=== PATIENT | female | born 2000 | race Caucasian/White ===

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

== ENCOUNTER 2022-02-20 05:27 | Emergency (ER) | payer BC, OTHER ==
[~2022-02-20] VITALS: Ht 167 cm; Wt 53.5 kg
[2022-02-20 05:59] LABS: BILIRUBIN,URINE NEGATIVE (NEGATIVE); CLARITY,URINE CLEAR; COLOR,URINE YELLOW; GLUCOSE, URINE (UA) NEGATIVE (NEGATIVE); KETONES,URINE NEGATIVE (NEGATIVE); LEUKOCYTE ESTERASE ,URINE TRACE (NEGATIVE); NITRITE,URINE NEGATIVE (NEGATIVE); PH,URINE 6.5 (5-9); PROTEIN,URINE 2+ (NEGATIVE)
--- NOTE | 2022-02-20 06:15 | ED GU-Female ---
General Chief Complaint: - Reproductive Stated Complaint: CRAMPING Nursing Triage Note: Patient has history of PCOS. Patient complaint of lower abdominal cramping. patient mother states patient "passed out". patient verbalized treated at for the PCOS. Source: patient Exam Limitations: no limitations History of Present Illness Date Seen by Provider: Feb 20, 2022 Time Seen by Provider: 06:02 Initial Comments Patient is a 21-year-old female who presents to the emergency room with her mother chief complaint suprapubic abdominal pain onset at approximately 1 AM. Patient states the pain is sharp and stabbing. It did cause some nausea and vomiting. She is followed at for "low estrogen". Patient reports her menstrual cycles are relatively normal. Her last one was at the beginning of February. No prior abdominal surgeries. No prior pregnancies. She did start her menstrual cycle this evening per she took 2 Midol just prior to arrival. Currently rates her pain at a "8". Denies dysuria, urgency, frequency or hematuria. No abnormal bowel movements. No abnormal vaginal discharge. No fevers or chills although her mother reports that she had a "low-grade" temperature early this morning. No history of diagnosed ovarian cysts. All other review of systems reviewed and negative except as stated Timing/Duration: this morning (99) Severity/Quality: severe, sharp, stabbing Location: suprapubic Radiation: none Activities at Onset: sleep Prior Genitourinary Problems: similar symptoms (not as bad as this morning) Associated Symptoms: nausea/vomiting, syncope Allergies and Home Medications Allergies Coded Allergies: No Known Drug Allergies (Unverified , 06/11/19) Patient Home Medication List Home Medication List Reviewed: Yes Ondansetron (Ondansetron Odt) 4 Mg Tab.rapdis, 8 MG PO Q6H PRN for NAUSEA/VOMITING Prescribed by: GURWINDER FAJARDO on 06/12/19 0051 Review of Systems Review of Systems Constitutional: see HPI EENTM: no symptoms reported Respiratory: no symptoms reported Cardiovascular: no symptoms reported Gastrointestinal: abdominal pain : No LMP: Jan 21, 2022 Musculoskeletal: no symptoms reported Skin: no symptoms reported All Other Systemes Reviewed Negative Unless Noted: Yes Past Qvwzlwd-Gwexko-Zhcfdk Hx Seasonal Allergies Seasonal Allergies: No Past Medical History Surgeries: No Respiratory: No Cardiac: No Neurological: No Genitourinary: No Gastrointestinal: No Musculoskeletal: No Endocrine: No HEENT: No Cancer: No Psychosocial: Yes Bipolar Integumentary: No Physical Exam Vital Signs Vital Signs - First Documented 02/20/22 05:42 Temp 36.2 Pulse 65 Resp 18 B/P (MAP) 119/69 (86) Pulse Ox 100 O2 Delivery Room Air Capillary Refill : Less Than 3 Seconds Height, Weight, BMI Height: '" Weight: lbs. oz. kg; 19.00 BMI Method: General Appearance: WD/WN, no apparent distress HEENT: PERRL/EOMI Cardiovascular: regular rate, rhythm Respiratory: lungs clear, normal breath sounds, no respiratory distress, no accessory muscle use Gastrointestinal: normal bowel sounds, soft, tenderness (suprapubic tenderness to suprapubic region. no involuntary guarding. mild tenderness diffusely. no rebound/ridgidity) Extremities: normal range of motion, normal inspection Neurologic/Psychiatric: alert, normal mood/affect, oriented x 3 Skin: normal color, warm/dry Progress/Results/Core Measures Suspected Sepsis SIRS Temperature: Pulse: 65 Respiratory Rate: 18 Blood Pressure 119 /69 Mean: 86 Results/Orders Lab Results Laboratory Tests Test 02/20/22 05:46 Range/Units Urine Color YELLOW Urine Clarity CLEAR Urine pH 6.5 5-9 Urine Specific [place] 1.025 H 1.016-1.022 Urine Protein 2+ H NEGATIVE Urine Glucose (UA) NEGATIVE NEGATIVE Urine Ketones NEGATIVE NEGATIVE Urine Nitrite NEGATIVE NEGATIVE Urine Bilirubin NEGATIVE NEGATIVE Urine Urobilinogen 0.2 < = 1.0 MG/DL Urine Leukocyte Esterase TRACE H NEGATIVE Urine RBC (Auto) 3+ H NEGATIVE Urine RBC TNTC H /HPF Urine WBC 2-5 /HPF Urine Squamous Epithelial Cells 0-2 /HPF Urine Crystals PRESENT H /LPF Urine Amorphous Sediment FEW DAGOBERTO URATES H /LPF Urine Bacteria FEW H /HPF Urine Casts NONE /LPF Urine Mucus LARGE H /LPF Urine Culture Indicated YES Urine Test NEGATIVE NEGATIVE My Orders Orders - MEI JARVIS MD Ketorolac Injection (Toradol Injection) (02/20/22 06:30) Us Non Ob Pelvis Comp/Transvag (02/20/22 06:28) Medications Given in ED Current Medications Medications Dose Ordered Sig/Betty Route Start Time Stop Time Status Last Admin Dose Admin Ketorolac Tromethamine 30 mg ONCE ONCE IM 02/20/22 06:30 11/9/22 06:31 DC 02/20/22 06:26 30 MG Vital Signs/I&O 02/20/22 05:42 Temp 36.2 Pulse 65 Resp 18 B/P (MAP) 119/69 (86) Pulse Ox 100 O2 Delivery Room Air Capillary Refill : Less Than 3 Seconds Blood Pressure Mean: 86 Progress Note : Time: 07:33 Progress Note Patient seen and examined by me. Eval today includes a physical exam, urinalysis, preg test and pelvic ultrasound. Patient appears comfortable with pain at an "8". Pain meds [employer] - "midol". Abdominal exam, non focal. normal bowel sounds. non n/v/d/c. no urinary complaints. Low clinical suspicion for acute surgical condition, such as appendicitis, bowel obstruction and even torsion - however, in light of reported history of PCOS, pelvic ultrasound was performed which was normal. test negative. urine with gross hematuria (patient is on her menstrual cycle). Low clinical suspicion for UTI/kidney stone - HPI and PE no consistent with kidney stone presentation and she is asymptomatic of a UTI, Feels much better after TOradol. Diagnostic Imaging Diagonstic Imaging: Ultrasound Comments preliminary interpretation - normal flow, no large cysts; no free fluid, unremarkable Departure Impression Primary Impression: Pelvic pain Additional Impression: Menses painful Disposition: 01 HOME, SELF-CARE Condition: Improved Departure-Patient Inst. Decision time for Depature: 07:49 Referrals: ZAK HANNA MD (PCP/Family) Primary Care Physician Patient Instructions: Painful Periods Add. Discharge Instructions: Please follow up with an OBGYN provider for further management of control and hormones. Over the counter generic Aleve (naproxen) 250mg pills - take 2 twice a day with food for cramping pain. This will also help slow down the flow of your cycle ( make it less heavy). There are menstrual heat relief cramps (much like for joint pain) available at [facility] - that last up to 8 hours at a time that may help. Return to the Emergency Department for any worsening pain, especially with fever, vomiting, a passing out spell, or any other, emergent, concerning complaints. Copy Copies To 1: [facility]/MIKAL Copies To 2: [facility]/MEI RAMOS MD Feb 20, 2022 06:15
[2022-02-20 06:21] LABS: AMORPHOUS SEDIMENT,UR FEW AMOR URATES /LPF; BACTERIA,URINE FEW /HPF; RBC,URINE TNTC /HPF; SQUAMOUS EPITHELIAL CELL,UR 0-2 /HPF
[2022-02-20] MEDS ORDERED: KETOROLAC 30 MG/ML VIAL IM ONE (06:30)
[2022-02-20 07:59] VITALS: BP 106/62
--- NOTE | 2022-02-20 08:56 | Diagnostic Imaging Report ---
PROCEDURE: US Non-ob pelvis comp/trans. TECHNIQUE: Multiple realtime grayscale images were obtained of the pelvis in various projections endovaginally. Transabdominal imaging was also performed. INDICATION: Left pelvic and suprapubic pain FINDINGS: Ovaries and adnexa normal. There is normal color Doppler blood flow. No adnexal torsion. No suspicious solid or cystic ovarian lesion with a physiologic follicular cyst noted incidentally. There is no fibroid or myometrial mass. The endometrium appeared normal, homogenous and 6 mm. IMPRESSION: This is a normal pelvic ultrasound. Dictated by: Dictated on workstation # [id number]
== END 2022-02-20 07:59 | disposition home or self-care (01) ==
LOC: EDUNIT# 05:27 → ER 05:28
DX: N94.6 Dysmenorrhea, unspecified (principal); Z32.02 Encounter for pregnancy test, result negative; Z28.310 Unvaccinated for COVID-19
CPT/HCPCS: 76830; 76856; 81000; 84703; 87088

== ENCOUNTER 2022-07-22 06:43 | Emergency (ER) | payer OTHER ==
[~2022-07-22] VITALS: Ht 167 cm; Wt 55.0 kg
--- NOTE | 2022-07-22 07:50 | ED Abdominal Pain ---
General Chief Complaint: Abdominal/GI Problems Stated Complaint: ABD PAIN Nursing Triage Note: Patient has presented to ER with cc of abd cramping since about 0330 this morning - she reports that she started her period this morning - she normally has severe cramping with her periods. She reports that she has had this for the last 2 years. She is to be taking control but she has not not for some time due to lack of insurance. She took aleeve this morning but it has not helped the pain much. Source of Information: Patient Exam Limitations: No Limitations History of Present Illness Date Seen by Provider: Jul 22, 2022 Time Seen by Provider: 07:35 Initial Comments This 22 year old young lady presents to the ER with complaints of severe menstrual cramping which is no unusual for her. She has been up since about 0330 with severe cramps. She reports "nearly passing out.". She has vomited secondary to the cramps. She reports her pain is 9/10. She reports frequently needing to come to the emergency room for management of dysmenorrhea. She is supposed to be discussing management of dysmenorrhea with Dr. Hanna and talk about control options, but she reports financial barriers preventing her from doing so. She took Aleve around 0400. Allergies and Home Medications Allergies Coded Allergies: No Known Drug Allergies (Unverified , 06/11/19) Patient Home Medication List Home Medication List Reviewed: Yes Hyoscyamine Sulfate (Levsin-Sl) 0.125 Mg Tab.subl, 1-2 TAB SL Q4H PRN for CRAMPS Prescribed by: YULIA CRUZ on 07/22/22 0842 Ondansetron (Ondansetron Odt) 4 Mg Tab.rapdis, 8 MG PO Q6H PRN for NAUSEA/VOMITING Prescribed by: GURWINDER FAJARDO on 06/12/19 0051 Ondansetron (Ondansetron Odt) 4 Mg Tab.rapdis, 4 MG SL Q4H PRN for NAUSEA/VOMITING Prescribed by: YULIA CRUZ on 07/22/22 0842 Review of Systems Review of Systems Constitutional: no symptoms reported EENTM: No Symptoms Reported Respiratory: No Symptoms Reported Cardiovascular: No Symptoms Reported Gastrointestinal: No Symptoms Reported Genitourinary: See HPI Musculoskeletal: see HPI Skin: no symptoms reported Psychiatric/Neurological: No Symptoms Reported Endocrine: No Symptoms Reported Hematologic/Lymphatic: No Symptoms Reported Past Kqmszlo-Johabk-Lpxger Hx Patient Social History Tobacco Use?: Yes Tobacco type used: Cigarettes Smoking Status: Current Everyday Smoker Substance use?: Yes Substance type: Marijuana Substance frequency: Daily Alcohol Use?: No Seasonal Allergies Seasonal Allergies: No Past Medical History Surgeries: No Respiratory: No Cardiac: No Neurological: No Reproductive Disorders: Yes Female Reproductive Disorders: Menstrual Problems (Severe dysmenorrhea with severe pain) Genitourinary: No Gastrointestinal: No Musculoskeletal: No Endocrine: No HEENT: No Cancer: No Psychosocial: Yes Bipolar Integumentary: No Physical Exam Vital Signs Vital Signs - First Documented 07/22/22 07:29 Temp 35.5 Pulse 66 Resp 16 B/P (MAP) 109/72 (84) Capillary Refill : Height/Weight/BMI Height: '" Weight: lbs. oz. kg; 19.00 BMI Method: General Appearance: WD/WN, no apparent distress, thin HEENT: normal ENT inspection Neck: normal inspection Respiratory: lungs clear, normal breath sounds, no respiratory distress Cardiovascular: regular rate, rhythm, no edema, no murmur Gastrointestinal: soft; No distended; tenderness (Suprapubic region, left upper quadrant, epigastrium) Extremities: normal inspection Neurologic/Psychiatric: alert, normal mood/affect, oriented x 3 Skin: normal color, warm/dry Progress/Results/Core Measures Results/Orders Lab Results Laboratory Tests Test 07/22/22 08:06 07/22/22 08:35 Range/Units White Blood Count 11.7 H 4.3-11.0 10^3/uL Red Blood Count 4.17 3.80-5.11 10^6/uL Hemoglobin 12.4 11.5-16.0 g/dL Hematocrit 38 35-52 % Mean Corpuscular Volume 90 80-99 fL Mean Corpuscular Hemoglobin 30 25-34 pg Mean Corpuscular Hemoglobin Concent 33 32-36 g/dL Red Cell Distribution Width 13.4 10.0-14.5 % Platelet Count 310 130-400 10^3/uL Mean Platelet Volume 9.9 9.0-12.2 fL Immature Granulocyte % (Auto) 0 % Neutrophils (%) (Auto) 86 H 42-75 % Lymphocytes (%) (Auto) 9 L 12-44 % Monocytes (%) (Auto) 4 0-12 % Eosinophils (%) (Auto) 0 0-10 % Basophils (%) (Auto) 1 0-10 % Neutrophils # (Auto) 10.1 H 1.8-7.8 10^3/uL Lymphocytes # (Auto) 1.0 1.0-4.0 10^3/uL Monocytes # (Auto) 0.5 0.0-1.0 10^3/uL Eosinophils # (Auto) 0.1 0.0-0.3 10^3/uL Basophils # (Auto) 0.1 0.0-0.1 10^3/uL Immature Granulocyte # (Auto) 0.0 0.0-0.1 10^3/uL Sodium Level 137 135-145 MMOL/L Potassium Level 3.6 3.6-5.0 MMOL/L Chloride Level 109 H 98-107 MMOL/L Carbon Dioxide Level 21 21-32 MMOL/L Anion Gap 7 5-14 MMOL/L Blood Urea Nitrogen 8 7-18 MG/DL Creatinine 0.74 0.60-1.30 MG/DL Estimat Glomerular Filtration Rate 118 BUN/Creatinine Ratio 11 Glucose Level 102 70-105 MG/DL Calcium Level 8.7 8.5-10.1 MG/DL Corrected Calcium 8.9 8.5-10.1 MG/DL Total Bilirubin 0.8 0.1-1.0 MG/DL Aspartate Amino Transf (AST/SGOT) 19 5-34 U/L Alanine Aminotransferase (ALT/SGPT) 21 0-55 U/L Alkaline Phosphatase 44 40-136 U/L Total Protein 6.6 6.4-8.2 GM/DL Albumin 3.8 3.2-4.5 GM/DL Lipase 23 8-78 U/L Serum Test, Qualitative NEGATIVE NEGATIVE Urine Color YELLOW Urine Clarity CLEAR Urine pH 7.5 5-9 Urine Specific [place] 1.015 L 1.016-1.022 Urine Protein TRACE H NEGATIVE Urine Glucose (UA) NEGATIVE NEGATIVE Urine Ketones 1+ H NEGATIVE Urine Nitrite NEGATIVE NEGATIVE Urine Bilirubin NEGATIVE NEGATIVE Urine Urobilinogen 0.2 < = 1.0 MG/DL Urine Leukocyte Esterase TRACE H NEGATIVE Urine RBC (Auto) 1+ H NEGATIVE Urine RBC RARE /HPF Urine WBC 0-2 /HPF Urine Squamous Epithelial Cells 0-2 /HPF Urine Crystals PRESENT H /LPF Urine Amorphous Sediment FEW DAGOBERTO PHOSPHATE H /LPF Urine Bacteria NEGATIVE /HPF Urine Casts NONE /LPF Urine Mucus SMALL H /LPF Urine Culture Indicated NO My Orders Orders - YULIA GREER MD Ua Culture If Indicated (07/22/22 06:57) Hcg,Qualitative Serum (07/22/22 07:47) Ed Iv/Invasive Line Start (07/22/22 07:47) Cbc With Automated Diff (07/22/22 07:47) Comprehensive Metabolic Panel (07/22/22 07:47) Lipase (07/22/22 07:47) Ketorolac Injection (Toradol Injection) (07/22/22 08:00) Ondansetron Injection (Zofran Injectio (07/22/22 08:00) Lactated Ringers (Lr 1000 Ml Iv Solution (07/22/22 08:00) Hyoscyamine Sl Tablet (Levsin Sl Tablet) (07/22/22 08:00) Medications Given in ED Vital Signs/I&O 07/22/22 07/22/22 07:29 09:25 Temp 35.5 36.0 Pulse 66 62 Resp 16 16 B/P (MAP) 109/72 (84) 112/74 Blood Pressure Mean: 84 Progress Progress Note : Progress Note Patient was interviewed and examined. Based on location of her pain and tenderness, labs were obtained including CBC, CMP, lipase, serum hCG, and urinalysis. Labs were reviewed and interpreted by me. There were no significant abnormalities appreciated. She was treated with a liter of IV fluid, Toradol, Zofran, and Levsin with significant improvement. See discharge instructions for further discussion. Departure Impression Primary Impression: Dysmenorrhea Additional Impression: Nausea & vomiting Qualified Codes: R11.2 - Nausea with vomiting, unspecified Disposition: HOME, SELF-CARE Condition: Improved Departure-Patient Inst. Decision time for Depature: 08:39 Referrals: ZAK HANNA MD (PCP/Family) Primary Care Physician Patient Instructions: Menstrual Cramps Add. Discharge Instructions: Drink plenty of clear liquids to stay well-hydrated. Use the Zofran (ondansetron) as prescribed for nausea and vomiting. Use Levsin (hyoscyamine) as prescribed for bowel or menstrual cramping. Both Zofran and Levsin are sublingual tablets that can be dissolved under your tongue. Use of marijuana or THC products is discouraged as it may cause severe problems with abdominal pain, cramping, and vomiting. Follow-up with your primary care provider or women's health provider as soon as possible to discuss methods of preventing severe menstrual cramps. For pain you may take either Aleve (naproxen) 500 mg twice daily or ibuprofen up to 600 mg every 6 hours. Add Tylenol (acetaminophen) up to 1000 mg every 6 hours as needed for pain not controlled by Aleve or ibuprofen. Return to care if you have worsening symptoms despite following these instructions. All discharge instructions reviewed with patient and/or family. Voiced understanding. Scripts Ondansetron (Ondansetron Odt) 4 Mg Tab.rapdis 4 MG SL Q4H PRN for NAUSEA/VOMITING, #10 TAB Prov: YULIA GREER MD 07/22/22 Hyoscyamine Sulfate (Levsin-Sl) 0.125 Mg Tab.subl 1-2 TAB SL Q4H PRN for CRAMPS, #10 TAB 0 Refills Prov: YULIA GREER MD 07/22/22 Copy Copies To 1: ZAK HANNA MD, JOSHUA T MD Jul 22, 2022 07:50
[2022-07-22] MEDS ORDERED: ONDANSETRON 4 MG/2 ML (SDV) Z0FRAN IVP ONE (08:00)
[2022-07-22] MEDS ORDERED: LACTATED RINGERS 1,000 ML IV ONE (08:00)
[2022-07-22] MEDS ORDERED: KETOROLAC 30 MG/ML VIAL IVP ONE (08:00)
[2022-07-22] MEDS ORDERED: HYOSCYAMINE 0.125 MG (LEVSIN) TAB SL ONE (08:00)
[2022-07-22 08:39] LABS: BASOPHILS # (AUTO) 0.1 10^3/uL (0.0-0.1); BASOPHILS % (AUTO) 1 % (0-10); EOSINOPHILS # (AUTO) 0.1 10^3/uL (0.0-0.3); EOSINOPHILS % (AUTO) 0 % (0-10); HEMATOCRIT 38 % (35-52); HEMOGLOBIN 12.4 g/dL (11.5-16.0); LYMPHOCYTES % (AUTO) 9 % (12-44); MEAN CORPUSCULAR HEMOGLOBIN 30 pg (25-34); MEAN CORPUSCULAR HGB CONC 33 g/dL (32-36); MEAN CORPUSCULAR VOLUME 90 fL (80-99); MEAN PLATELET VOLUME 9.9 fL (9.0-12.2); MONOCYTES # (AUTO) 0.5 10^3/uL (0.0-1.0); MONOCYTES % (AUTO) 4 % (0-12); NEUTROPHILS # (AUTO) 10.1 10^3/uL (1.8-7.8); NEUTROPHILS % (AUTO) 86 % (42-75); PLATELET COUNT 310 10^3/uL (130-400); WHITE BLOOD COUNT 11.7 10^3/uL (4.3-11.0)
[2022-07-22] MEDS ORDERED: HYOS0.1283 SL (08:42)
[2022-07-22] MEDS ORDERED: ONDA4TAB11 SL (08:42)
[2022-07-22 08:44] LABS: BILIRUBIN,URINE NEGATIVE (NEGATIVE); CLARITY,URINE CLEAR; COLOR,URINE YELLOW; GLUCOSE, URINE (UA) NEGATIVE (NEGATIVE); KETONES,URINE 1+ (NEGATIVE); LEUKOCYTE ESTERASE ,URINE TRACE (NEGATIVE); NITRITE,URINE NEGATIVE (NEGATIVE); PH,URINE 7.5 (5-9); PROTEIN,URINE TRACE (NEGATIVE)
[2022-07-22 08:52] LABS: ALBUMIN 3.8 GM/DL (3.2-4.5)
[2022-07-22 08:53] LABS: POTASSIUM 3.6 MMOL/L (3.6-5.0)
[2022-07-22 08:54] LABS: AMORPHOUS SEDIMENT,UR FEW AMOR PHOSPHATE /LPF; BACTERIA,URINE NEGATIVE /HPF; RBC,URINE RARE /HPF; SQUAMOUS EPITHELIAL CELL,UR 0-2 /HPF; WBC,URINE 0-2 /HPF
[2022-07-22 08:54] LABS: CALCIUM 8.7 MG/DL (8.5-10.1)
[2022-07-22 08:55] LABS: TOTAL PROTEIN 6.6 GM/DL (6.4-8.2)
[2022-07-22 08:57] LABS: BILIRUBIN,TOTAL 0.8 MG/DL (0.1-1.0)
[2022-07-22 08:59] LABS: CREATININE SERUM 0.74 MG/DL (0.60-1.30)
[2022-07-22 09:25] VITALS: BP 112/74
== END 2022-07-22 09:26 | disposition home or self-care (01) ==
LOC: EDUNIT# 06:43 → ER 06:47
DX: N94.6 Dysmenorrhea, unspecified (principal); R11.2 Nausea with vomiting, unspecified; F17.210 Nicotine dependence, cigarettes, uncomplicated
CPT/HCPCS: 36415; 80053; 81000; 83690; 84703; 85025; 99282